=== PATIENT | female | born 1955 | race African-American/Black ===

== ENCOUNTER 2021-07-15 20:01 | Inpatient (IN) | payer MEDICARE, OTHER ==
[~2021-07-15] VITALS: Ht 170.2 cm; Wt 88.0 kg
[2021-07-15] MEDS ORDERED: IPRATROPIUM BROMIDE (0.02%) 0.5MG/2.5ML NEB HHN STA (23:02)
[2021-07-15] MEDS ORDERED: ALBUTEROL (0.083%) 2.5MG/3ML NEB HHN STA (23:02)
[2021-07-15] MEDS ORDERED: FUROSEMIDE 40MG/4ML VIAL IVP ONE (23:15)
[2021-07-15 23:39] LABS: BASOPHILS % 0.3 % (0.0-2.0); EOSINOPHILS % 1.7 % (0.0-5.0); HEMATOCRIT. 36.1 % (36.0-48.0); LYMPHOCYTES % 24.1 % (20.0-50.0); MEAN CORPUSCULAR HEMOGLOBIN 29.2 pg (28.0-32.0); MEAN CORPUSCULAR VOLUME 87.9 fL (81.0-99.0); MEAN PLATELET VOLUME 8.6 fl (7.4-10.4); MONOCYTES % 9.6 % (2.0-8.0); NEUTROPHILS % 64.3 % (40.0-76.0); PLATELET 185 x1000/uL (130-400); RED CELL DISTRIBUTION WIDTH 12.5 % (11.6-14.6)
[2021-07-15 23:45] LABS: CHLORIDE 111 mEq/L (98-107)
[2021-07-15] MEDS ORDERED: CEFTRIAXONE 1 G PREMIX 50 ML IV ONE (23:45)
[2021-07-15] MEDS ORDERED: AZITHROMYCIN 500 MG in DEXT 5% WATER 250 ML IV ONE (23:45)
[2021-07-16] MEDS ORDERED: KETOROLAC 30MG/ML VIAL IV ONE (01:45)
[2021-07-16 09:44] VITALS: BP 132/83
[2021-07-16] MEDS ORDERED: ACETAMINOPHEN 325MG TABLET PO PRN (10:15)
[2021-07-16] MEDS ORDERED: ONDANSETRON HCL 4MG/2ML INJ IV PRN (10:15)
[2021-07-16] MEDS ORDERED: FUROSEMIDE 40MG/4ML VIAL IVP SCH (10:28)
[2021-07-16] MEDS: AMLODIPINE 10MG TABLET PO SCH ×2 (11:15→11:26)
[2021-07-16 11:34] VITALS: BP 154/92
[2021-07-16] MEDS ORDERED: CARVEDILOL 6.25 MG TABLET PO SCH (21:00)
== END 2021-07-16 14:07 | disposition left against medical advice (07) | DRG 194 ==
LOC: ER 20:46 → MICUSO 07-16 02:47 → EDBEDREQDT 07-16 02:49 → EDBEDREQTM 07-16 02:49 → EDBEDREQ 07-16 02:49 → 6WST 07-16 07:16
PROVIDERS: ADMIT Internal Medicine; ATTEND Internal Medicine
DX: I11.0 Hypertensive heart disease with heart failure (principal); E44.0 Moderate protein-calorie malnutrition; E87.8 Other disorders of electrolyte and fluid balance, not elsewhere classified; I42.9 Cardiomyopathy, unspecified; I16.0 Hypertensive urgency; F15.10 Other stimulant abuse, uncomplicated; I50.23 Acute on chronic systolic (congestive) heart failure; F17.210 Nicotine dependence, cigarettes, uncomplicated; Z20.822 Contact with and (suspected) exposure to COVID-19; J44.9 Chronic obstructive pulmonary disease, unspecified; Z53.29 Procedure and treatment not carried out because of patient's decision for other reasons; Z82.49 Family history of ischemic heart disease and other diseases of the circulatory system; Z88.5 Allergy status to narcotic agent; Z71.6 Tobacco abuse counseling; Z68.30 Body mass index [BMI] 30.0-30.9, adult
CPT/HCPCS: 36415; 71045; 80053; 83605; 83880; 84484; 85025; 87426; 93005; 94640; 99291; J0456; J0696; J1885; J1940; J7060

== ENCOUNTER 2021-09-10 12:07 | Inpatient (IN) | payer MEDICARE, OTHER ==
[~2021-09-10] VITALS: Ht 170.2 cm; Wt 86.8 kg
[2021-09-10] MEDS ORDERED: CLONIDINE 0.2MG TABLET PO ONE (13:45)
[2021-09-10 14:41] LABS: BASOPHILS % 0.5 % (0.0-2.0); EOSINOPHILS % 1.5 % (0.0-5.0); HEMATOCRIT. 39.3 % (36.0-48.0); HEMOGLOBIN. 13.1 g/dL (12.0-16.0); LYMPHOCYTES % 19.3 % (20.0-50.0); MEAN CORPUSCULAR HEMOGLOBIN 29.1 pg (28.0-32.0); MEAN CORPUSCULAR VOLUME 87.4 fL (81.0-99.0); MEAN PLATELET VOLUME 8.7 fl (7.4-10.4); MONOCYTES % 8.9 % (2.0-8.0); NEUTROPHILS % 69.8 % (40.0-76.0); PLATELET 231 x1000/uL (130-400); RED CELL DISTRIBUTION WIDTH 12.9 % (11.6-14.6)
[2021-09-10 14:42] LABS: CLARITY URINE CLEAR (CLEAR); COLOR URINE YELLOW (YELLOW); KETONES URINE NEGATIVE (NEGATIVE); LEUKOCYTE ESTERASE URINE TRACE (NEGATIVE); NITRITE URINE NEGATIVE (NEGATIVE); OCCULT BLOOD URINE NEGATIVE (NEGATIVE); PROTEIN URINE 2+ (NEGATIVE); SPECIFIC GRAVITY URINE 1.008 (1.005-1.030); UROBILINOGEN URINE 0.2 E.U./dL (0.2-1.0)
[2021-09-10 14:47] LABS: CHLORIDE 105 mEq/L (98-107)
[2021-09-10 14:50] LABS: ETHANOL BLOOD < 10 mg/dL
[2021-09-10 15:04] LABS: *AMPHETAMINES SCREEN URINE PRESUMTIVE POSITIVE (NEGATIVE); *BARBITURATES SCREEN URINE NEGATIVE (NEGATIVE); *BENZODIAZEPINES SCREEN URINE NEGATIVE (NEGATIVE); *COCAINE SCREEN URINE NEGATIVE (NEGATIVE)
[2021-09-10 15:05] LABS: CANNABINOID URINE SCREEN NEGATIVE (NEGATIVE); METHADONE URINE SCREEN NEGATIVE (NEGATIVE); OPIATES URINE SCREEN NEGATIVE (NEGATIVE); PHENCYCLIDINE URINE SCREEN NEGATIVE (NEGATIVE)
[2021-09-10] MEDS ORDERED: NITROGLYCERIN OINT 1GM/INCH UDPKT TD ONE (15:15)
[2021-09-10] MEDS ORDERED: FUROSEMIDE 40MG/4ML VIAL IV ONE (15:15)
[2021-09-10] MEDS ORDERED: ASPIRIN 81MG TABLET PO ONE (15:15)
[2021-09-10] MEDS ORDERED: ACETAMINOPHEN 325MG TABLET PO ONE (16:15)
[2021-09-10] MEDS ORDERED: CLONIDINE 0.1MG TABLET PO PRN (21:30)
[2021-09-10 23:00] VITALS: BP 149/95
[2021-09-11] VITALS: BP 167/113
[2021-09-11] MEDS ORDERED: QUET300T2 PO (01:30)
[2021-09-11] MEDS ORDERED: ASPI-1079 PO (01:31)
[2021-09-11 04:00] VITALS: BP 134/104
[2021-09-11 06:17] LABS: BASOPHILS % 0.3 % (0.0-2.0); EOSINOPHILS % 2.3 % (0.0-5.0); HEMATOCRIT. 38.9 % (36.0-48.0); HEMOGLOBIN. 12.7 g/dL (12.0-16.0); LYMPHOCYTES % 34.2 % (20.0-50.0); MEAN CORPUSCULAR HEMOGLOBIN 28.9 pg (28.0-32.0); MEAN CORPUSCULAR VOLUME 88.2 fL (81.0-99.0); MEAN PLATELET VOLUME 9.3 fl (7.4-10.4); MONOCYTES % 11.6 % (2.0-8.0); NEUTROPHILS % 51.6 % (40.0-76.0); PLATELET 236 x1000/uL (130-400); RED BLOOD CELL COUNT 4.41 mill/uL (4.2-5.4); RED CELL DISTRIBUTION WIDTH 12.4 % (11.6-14.6)
[2021-09-11 08:00] VITALS: BP 111/84
[2021-09-11] MEDS ORDERED: FUROSEMIDE 20MG TABLET PO SCH (09:00)
[2021-09-11] MEDS ORDERED: ENOXAPARIN 40MG/0.4ML SYR SUBCUT SCH (09:00)
[2021-09-11 09:47] LABS: CHLORIDE 105 mEq/L (98-107)
[2021-09-11 12:00] VITALS: BP 114/64
[2021-09-11] MEDS ORDERED: FURO40TA5 MT (12:00)
[2021-09-11] MEDS ORDERED: SPIR25TA MT (12:00)
[2021-09-11] MEDS ORDERED: ATOR20TA65 MT (12:00)
[2021-09-11] MEDS ORDERED: CARV12.545 MT (12:00)
[2021-09-11] MEDS ORDERED: LOSA50TA41 MT (12:00)
[2021-09-11 13:35] VITALS: BP 116/59
== END 2021-09-11 15:45 | disposition home or self-care (01) | DRG 199 ==
LOC: ER 12:20 → 8WST 15:58 → ENRESERV 20:10
PROVIDERS: ADMIT Internal Medicine; ATTEND Internal Medicine
DX: I16.0 Hypertensive urgency (principal); E44.1 Mild protein-calorie malnutrition; C64.2 Malignant neoplasm of left kidney, except renal pelvis; R65.10 Systemic inflammatory response syndrome (SIRS) of non-infectious origin without acute organ dysfunction; I50.32 Chronic diastolic (congestive) heart failure; B18.2 Chronic viral hepatitis C; I11.0 Hypertensive heart disease with heart failure; G89.3 Neoplasm related pain (acute) (chronic); R47.1 Dysarthria and anarthria; Z20.822 Contact with and (suspected) exposure to COVID-19; R53.1 Weakness; R31.9 Hematuria, unspecified; F15.90 Other stimulant use, unspecified, uncomplicated; F20.9 Schizophrenia, unspecified; J44.9 Chronic obstructive pulmonary disease, unspecified; T43.95XA Adverse effect of unspecified psychotropic drug, initial encounter; Y92.89 Other specified places as the place of occurrence of the external cause; Z87.442 Personal history of urinary calculi; Z82.49 Family history of ischemic heart disease and other diseases of the circulatory system; Z88.0 Allergy status to penicillin; Z88.5 Allergy status to narcotic agent; Z71.51 Drug abuse counseling and surveillance of drug abuser
CPT/HCPCS: 36415; 71045; 80053; 80305; 80320; 81003; 83735; 83880; 84484; 85025; 87426; 93005; 93306; 97162; 99285; J1650; J1940; G0480

== ENCOUNTER 2021-12-08 11:53 | Inpatient (IN) | payer MEDICARE, OTHER ==
[~2021-12-08] VITALS: Ht 165.1 cm; Wt 89.0 kg
[~2021-12-08 11:53] MED LIST: ASPI-1079 PO; ATOR20TA65 MT; CARV12.545 MT; FURO40TA5 MT; LOSA50TA41 MT; QUET300T2 PO; SPIR25TA MT
[2021-12-08] MEDS ORDERED: DIPHENHYDRAMINE 50MG/ML VIAL IM STA (12:09)
[2021-12-08] MEDS ORDERED: LORAZEPAM 2MG/ML CPJ IM ONE (13:15)
[2021-12-08 14:57] LABS: CHLORIDE 111 mEq/L (98-107)
[2021-12-08 15:01] LABS: ETHANOL BLOOD < 10 mg/dL
[2021-12-08 15:17] LABS: BASOPHILS % 0.3 % (0.0-2.0); HEMOGLOBIN. 12.2 g/dL (12.0-16.0); LYMPHOCYTES % 16.6 % (20.0-50.0); MEAN CORPUSCULAR HEMOGLOBIN 28.3 pg (28.0-32.0); MEAN CORPUSCULAR VOLUME 90.2 fL (81.0-99.0); MEAN PLATELET VOLUME 8.6 fl (7.4-10.4); MONOCYTES % 10.1 % (2.0-8.0); PLATELET 196 x1000/uL (130-400); RED BLOOD CELL COUNT 4.32 mill/uL (4.2-5.4); RED CELL DISTRIBUTION WIDTH 13.2 % (11.6-14.6)
[2021-12-08 15:21] LABS: CLARITY URINE CLEAR (CLEAR); COLOR URINE DARK YELLOW (YELLOW); KETONES URINE TRACE (NEGATIVE); LEUKOCYTE ESTERASE URINE NEGATIVE (NEGATIVE); NITRITE URINE NEGATIVE (NEGATIVE); OCCULT BLOOD URINE TRACE (NEGATIVE); PROTEIN URINE 3+ (NEGATIVE); SPECIFIC GRAVITY URINE 1.022 (1.005-1.030)
[2021-12-08 15:31] LABS: *AMPHETAMINES SCREEN URINE PRESUMTIVE POSITIVE (NEGATIVE); *BARBITURATES SCREEN URINE NEGATIVE (NEGATIVE); *BENZODIAZEPINES SCREEN URINE NEGATIVE (NEGATIVE); *COCAINE SCREEN URINE NEGATIVE (NEGATIVE); CANNABINOID URINE SCREEN NEGATIVE (NEGATIVE); OPIATES URINE SCREEN NEGATIVE (NEGATIVE); PHENCYCLIDINE URINE SCREEN NEGATIVE (NEGATIVE)
[2021-12-08 15:33] LABS: METHADONE URINE SCREEN PRESUMTIVE POSITIVE (NEGATIVE)
[2021-12-08] MEDS ORDERED: SODIUM CHLORIDE 0.9% 1,000 ML IV ONE (17:15)
[2021-12-08] MEDS ORDERED: NALOXONE HCL 0.4 MG/ML 1ML VIAL IV ONE (18:00)
[2021-12-08] MEDS ORDERED: NALOXONE IV NR (19:00)
[2021-12-08] MEDS ORDERED: WATER IV NR (19:00)
[2021-12-08] MEDS ORDERED: DEXT 5% IV NR (19:00)
[2021-12-08] MEDS ORDERED: IPRATROPIUM/ALBUTEROL 0.5-3(2.5)MG/3ML NEB HHN PRN (23:45)
[2021-12-08] MEDS ORDERED: GUAIFENESIN 200MG/10ML SUGAR FREE UDC PO PRN (23:45)
[2021-12-08] MEDS ORDERED: CLONIDINE 0.1MG TABLET PO PRN (23:45)
[2021-12-08] MEDS ORDERED: DOCUSATE SODIUM 100MG CAPSULE PO PRN (23:45)
[2021-12-08] MEDS ORDERED: ACETAMINOPHEN 325MG TABLET PO PRN (23:45)
[2021-12-08] MEDS ORDERED: MAGNESIUM/ALUMINUM HYDROXIDE/SIMETHICONE 30ML UDC PO PRN (23:45)
[2021-12-09] VITALS (7 sets, daily range): BP systolic 156–197; BP diastolic 82–106
[2021-12-09] MEDS: DEXT 5%/0.45% NACL 1000ML 1,000 ML IV SCH ×2 (00:56→16:37)
[2021-12-09] MEDS: DIPHENHYDRAMINE 50MG/ML VIAL IV PRN ×2 (04:56→10:22)
[2021-12-09] MEDS: LORAZEPAM 2MG/ML CPJ IV PRN ×2 (06:08→10:22)
[2021-12-09] MEDS: SODIUM CHLORIDE 0.9% INJ 3ML FLUSH IVF SCH ×3 (06:09→21:06)
[2021-12-09] MEDS: ENOXAPARIN 30MG/0.3ML SYR SUBCUT SCH (10:21)
[2021-12-09 11:34] LABS: BASOPHILS % 0.4 % (0.0-2.0); EOSINOPHILS % 2.3 % (0.0-5.0); HEMATOCRIT. 35.7 % (36.0-48.0); HEMOGLOBIN. 11.5 g/dL (12.0-16.0); MEAN CORPUSCULAR HEMOGLOBIN 28.5 pg (28.0-32.0); MEAN CORPUSCULAR VOLUME 88.5 fL (81.0-99.0); MEAN PLATELET VOLUME 8.3 fl (7.4-10.4); MONOCYTES % 9.5 % (2.0-8.0); NEUTROPHILS % 68.8 % (40.0-76.0); PLATELET 162 x1000/uL (130-400); RED BLOOD CELL COUNT 4.03 mill/uL (4.2-5.4); RED CELL DISTRIBUTION WIDTH 12.6 % (11.6-14.6)
[2021-12-09 11:40] LABS: CHLORIDE 111 mEq/L (98-107)
[2021-12-09] MEDS: FUROSEMIDE 40MG TABLET PO SCH (13:06)
[2021-12-10] VITALS (11 sets, daily range): BP systolic 135–204; BP diastolic 46–135
[2021-12-10] MEDS: CLONIDINE HCL 0.1MG/24HR PATCH TD NR (03:04)
[2021-12-10] MEDS: SODIUM CHLORIDE 0.9% INJ 3ML FLUSH IVF SCH ×3 (05:39→21:57)
[2021-12-10 06:18] LABS: BASOPHILS % 0.3 % (0.0-2.0); EOSINOPHILS % 0.5 % (0.0-5.0); HEMATOCRIT. 38.3 % (36.0-48.0); HEMOGLOBIN. 12.5 g/dL (12.0-16.0); LYMPHOCYTES % 7.3 % (20.0-50.0); MEAN CORPUSCULAR HEMOGLOBIN 29.4 pg (28.0-32.0); MEAN CORPUSCULAR VOLUME 89.8 fL (81.0-99.0); MONOCYTES % 10.6 % (2.0-8.0); NEUTROPHILS % 81.3 % (40.0-76.0); PLATELET 151 x1000/uL (130-400); RED BLOOD CELL COUNT 4.26 mill/uL (4.2-5.4); RED CELL DISTRIBUTION WIDTH 12.4 % (11.6-14.6)
[2021-12-10] MEDS: DIPHENHYDRAMINE 50MG/ML VIAL IV PRN (06:33)
[2021-12-10] MEDS: FUROSEMIDE 40MG TABLET PO SCH (08:22)
[2021-12-10] MEDS: ENOXAPARIN 30MG/0.3ML SYR SUBCUT SCH (08:24)
[2021-12-10] MEDS: AMLODIPINE 5MG TABLET PO SCH ×2 (09:00→20:59)
[2021-12-10] MEDS ORDERED: LABETALOL 5MG/ML SYR 20 MG/4 ML SYRINGE IV PRN (12:15)
[2021-12-10] MEDS ORDERED: LABETALOL HCL VIAL 20 MG/4 ML VIAL IV PRN (12:45)
[2021-12-10] MEDS: LABETALOL 5MG/ML SYR 20 MG/4 ML SYRINGE IV PRN (13:43)
[2021-12-10] MEDS: DEXT 5%/0.45% NACL 1000ML 1,000 ML IV SCH (13:44)
[2021-12-10] MEDS ORDERED: FOLIC ACID 1 MG, THIAMINE HCL 100 MG, MVI, ADULT NO.1 10 ML in DEXTROSE 5% WATER 1,000 ML IV SCH (14:00)
[2021-12-11] VITALS (12 sets, daily range): BP systolic 127–187; BP diastolic 65–130
[2021-12-11] MEDS: LABETALOL 5MG/ML SYR 20 MG/4 ML SYRINGE IV PRN ×2 (01:03→12:13)
[2021-12-11] MEDS: CLONIDINE HCL 0.1MG/24HR PATCH TD NR (02:40)
[2021-12-11] MEDS: DIPHENHYDRAMINE 50MG/ML VIAL IV PRN ×2 (03:52→21:38)
[2021-12-11] MEDS: LORAZEPAM 2MG/ML CPJ IV PRN ×2 (04:29→12:12)
[2021-12-11] MEDS: SODIUM CHLORIDE 0.9% INJ 3ML FLUSH IVF SCH ×3 (05:37→21:09)
[2021-12-11 07:29] LABS: HEMOGLOBIN. 10.9 g/dL (12.0-16.0); MEAN CORPUSCULAR HEMOGLOBIN 29.3 pg (28.0-32.0); MEAN CORPUSCULAR VOLUME 88.7 fL (81.0-99.0); MEAN PLATELET VOLUME 9.7 fl (7.4-10.4); PLATELET 148 x1000/uL (130-400); RED BLOOD CELL COUNT 3.72 mill/uL (4.2-5.4); RED CELL DISTRIBUTION WIDTH 12.5 % (11.6-14.6)
[2021-12-11 08:31] LABS: CHLORIDE 110 mEq/L (98-107)
[2021-12-11] MEDS: AMLODIPINE 5MG TABLET PO SCH ×2 (09:00→21:09)
[2021-12-11] MEDS ORDERED: ENOXAPARIN 40MG/0.4ML SYR SUBCUT SCH (09:00)
[2021-12-11] MEDS: FUROSEMIDE 40MG/4ML VIAL IVP SCH (10:21)
[2021-12-11] MEDS: DEXT 5%/0.45% NACL 1000ML 1,000 ML IV SCH (12:13)
[2021-12-11] MEDS ORDERED: LOSARTAN POTASSIUM 50 MG TABLET PO NR (13:45)
[2021-12-11] MEDS: ATORVASTATIN CALCIUM 20MG TABLET PO SCH (21:09)
[2021-12-11] MEDS: LOSARTAN POTASSIUM 50 MG TABLET PO SCH (21:09)
[2021-12-12] VITALS (13 sets, daily range): BP systolic 125–185; BP diastolic 58–130
[2021-12-12] MEDS: DEXT 5%/0.45% NACL 1000ML 1,000 ML IV SCH (03:42)
[2021-12-12] MEDS: LORAZEPAM 2MG/ML CPJ IV PRN ×4 (03:45→23:19)
[2021-12-12] MEDS: LABETALOL 5MG/ML SYR 20 MG/4 ML SYRINGE IV PRN (03:46)
[2021-12-12] MEDS: SODIUM CHLORIDE 0.9% INJ 3ML FLUSH IVF SCH ×3 (05:00→22:00)
[2021-12-12 05:19] LABS: CHLORIDE 109 mEq/L (98-107)
[2021-12-12 07:14] LABS: BASOPHILS % 0.4 % (0.0-2.0); EOSINOPHILS % 2.4 % (0.0-5.0); HEMATOCRIT. 35.1 % (36.0-48.0); HEMOGLOBIN. 11.5 g/dL (12.0-16.0); LYMPHOCYTES % 19.5 % (20.0-50.0); MEAN CORPUSCULAR HEMOGLOBIN 29.2 pg (28.0-32.0); MEAN PLATELET VOLUME 9.4 fl (7.4-10.4); MONOCYTES % 10.3 % (2.0-8.0); NEUTROPHILS % 67.4 % (40.0-76.0); PLATELET 166 x1000/uL (130-400); RED BLOOD CELL COUNT 3.94 mill/uL (4.2-5.4); RED CELL DISTRIBUTION WIDTH 12.3 % (11.6-14.6)
[2021-12-12] MEDS: DIPHENHYDRAMINE 50MG/ML VIAL IV PRN ×3 (07:28→21:41)
[2021-12-12] MEDS: AMLODIPINE 5MG TABLET PO SCH ×2 (09:00→21:41)
[2021-12-12] MEDS: ENOXAPARIN 30MG/0.3ML SYR SUBCUT SCH ×2 (09:00→21:41)
[2021-12-12] MEDS: LOSARTAN POTASSIUM 50 MG TABLET PO SCH ×2 (09:00→21:40)
[2021-12-12] MEDS: FUROSEMIDE 40MG/4ML VIAL IVP SCH (10:28)
[2021-12-12] MEDS ORDERED: MAGNESIUM 2 G PREMIX 50 ML IV NR (11:00)
[2021-12-12 12:03] LABS: PLATELET ESTIMATE NORMAL
[2021-12-12 13:07] LABS: ANTI-NUCLEAR ANTIBODIES DIRECT Negative (Negative)
[2021-12-12] MEDS: ENALAPRIL 1.25MG/ML VIAL 1ML IV SCH ×3 (15:41→23:12)
[2021-12-12] MEDS: RISPERIDONE 0.25MG TABLET PO SCH (17:40)
[2021-12-12] MEDS: ATORVASTATIN CALCIUM 20MG TABLET PO SCH (21:40)
[2021-12-13] VITALS (10 sets, daily range): BP systolic 138–173; BP diastolic 65–117
[2021-12-13] MEDS: DEXT 5%/0.45% NACL 1000ML 1,000 ML IV SCH ×2 (03:58→23:18)
[2021-12-13] MEDS: ENALAPRIL 1.25MG/ML VIAL 1ML IV SCH ×3 (05:03→18:34)
[2021-12-13] MEDS: DIPHENHYDRAMINE 50MG/ML VIAL IV PRN (05:03)
[2021-12-13] MEDS: SODIUM CHLORIDE 0.9% INJ 3ML FLUSH IVF SCH ×3 (05:05→20:56)
[2021-12-13 05:25] LABS: CHLORIDE 109 mEq/L (98-107)
[2021-12-13 05:42] LABS: PHOSPHORUS 3.2 mg/dL (2.5-4.9)
[2021-12-13 06:09] LABS: BASOPHILS % 0.5 % (0.0-2.0); EOSINOPHILS % 3.4 % (0.0-5.0); HEMATOCRIT. 37.1 % (36.0-48.0); HEMOGLOBIN. 12.3 g/dL (12.0-16.0); LYMPHOCYTES % 27.2 % (20.0-50.0); MEAN CORPUSCULAR HEMOGLOBIN 29.2 pg (28.0-32.0); MEAN PLATELET VOLUME 9.3 fl (7.4-10.4); MONOCYTES % 10.7 % (2.0-8.0); NEUTROPHILS % 58.2 % (40.0-76.0); PLATELET 177 x1000/uL (130-400); RED BLOOD CELL COUNT 4.22 mill/uL (4.2-5.4); RED CELL DISTRIBUTION WIDTH 12.2 % (11.6-14.6)
[2021-12-13] MEDS: LORAZEPAM 2MG/ML CPJ IV PRN ×3 (06:41→20:57)
[2021-12-13] MEDS: FUROSEMIDE 40MG/4ML VIAL IVP SCH (08:57)
[2021-12-13] MEDS: ENOXAPARIN 30MG/0.3ML SYR SUBCUT SCH ×2 (08:57→20:37)
[2021-12-13] MEDS: AMLODIPINE 5MG TABLET PO SCH ×2 (10:32→20:55)
[2021-12-13] MEDS: RISPERIDONE 0.25MG TABLET PO SCH ×2 (10:32→17:00)
[2021-12-13] MEDS: LOSARTAN POTASSIUM 50 MG TABLET PO SCH ×2 (10:32→20:55)
[2021-12-13] MEDS: ATORVASTATIN CALCIUM 20MG TABLET PO SCH (20:55)
[2021-12-13] MEDS: ONDANSETRON HCL 4MG/2ML INJ IV PRN (20:57)
[2021-12-14] VITALS: BP 135/71
[2021-12-14] MEDS: ENALAPRIL 1.25MG/ML VIAL 1ML IV SCH ×2 (00:05→06:15)
[2021-12-14 04:00] VITALS: BP 129/90
[2021-12-14] MEDS: SODIUM CHLORIDE 0.9% INJ 3ML FLUSH IVF SCH ×3 (04:22→20:32)
[2021-12-14 07:18] LABS: BASOPHILS % 0.7 % (0.0-2.0); EOSINOPHILS % 3.8 % (0.0-5.0); HEMATOCRIT. 36.7 % (36.0-48.0); HEMOGLOBIN. 12.2 g/dL (12.0-16.0); LYMPHOCYTES % 30.8 % (20.0-50.0); MEAN CORPUSCULAR HEMOGLOBIN 29.4 pg (28.0-32.0); MEAN CORPUSCULAR VOLUME 88.6 fL (81.0-99.0); MEAN PLATELET VOLUME 11.2 fl (7.4-10.4); MONOCYTES % 13.3 % (2.0-8.0); NEUTROPHILS % 51.4 % (40.0-76.0); PLATELET 147 x1000/uL (130-400); RED BLOOD CELL COUNT 4.15 mill/uL (4.2-5.4); RED CELL DISTRIBUTION WIDTH 12.5 % (11.6-14.6)
[2021-12-14 08:00] VITALS: BP 118/76
[2021-12-14] MEDS: AMLODIPINE 5MG TABLET PO SCH ×2 (08:40→20:29)
[2021-12-14] MEDS: ENOXAPARIN 30MG/0.3ML SYR SUBCUT SCH ×2 (08:40→20:30)
[2021-12-14] MEDS: FUROSEMIDE 40MG/4ML VIAL IVP SCH (08:40)
[2021-12-14] MEDS: RISPERIDONE 0.25MG TABLET PO SCH ×2 (08:41→17:31)
[2021-12-14] MEDS: LOSARTAN POTASSIUM 50 MG TABLET PO SCH ×2 (08:46→20:29)
[2021-12-14 11:37] VITALS: BP 131/69
[2021-12-14 16:00] VITALS: BP 109/62
[2021-12-14 20:00] VITALS: BP 110/63
[2021-12-14] MEDS: ATORVASTATIN CALCIUM 20MG TABLET PO SCH (20:30)
[2021-12-15] VITALS (9 sets, daily range): BP systolic 108–140; BP diastolic 58–91
[2021-12-15] MEDS: SODIUM CHLORIDE 0.9% INJ 3ML FLUSH IVF SCH ×3 (05:17→21:01)
[2021-12-15] MEDS: DIPHENHYDRAMINE 50MG/ML VIAL IV PRN (05:17)
[2021-12-15] MEDS: ONDANSETRON HCL 4MG/2ML INJ IV PRN (05:17)
[2021-12-15] MEDS: RISPERIDONE 0.25MG TABLET PO SCH (08:26)
[2021-12-15] MEDS: ENOXAPARIN 30MG/0.3ML SYR SUBCUT SCH ×2 (08:26→21:01)
[2021-12-15] MEDS: FUROSEMIDE 40MG TABLET PO SCH (08:27)
[2021-12-15] MEDS: LOSARTAN POTASSIUM 50 MG TABLET PO SCH ×2 (08:27→21:01)
[2021-12-15 08:42] LABS: BASOPHILS % 0.6 % (0.0-2.0); EOSINOPHILS % 3.6 % (0.0-5.0); HEMATOCRIT. 34.9 % (36.0-48.0); HEMOGLOBIN. 11.6 g/dL (12.0-16.0); LYMPHOCYTES % 27.1 % (20.0-50.0); MEAN CORPUSCULAR HEMOGLOBIN 29.5 pg (28.0-32.0); MEAN CORPUSCULAR VOLUME 88.5 fL (81.0-99.0); MONOCYTES % 10.9 % (2.0-8.0); NEUTROPHILS % 57.8 % (40.0-76.0); PLATELET 160 x1000/uL (130-400); RED BLOOD CELL COUNT 3.94 mill/uL (4.2-5.4); RED CELL DISTRIBUTION WIDTH 12.2 % (11.6-14.6)
[2021-12-15] MEDS ORDERED: POTASSIUM CHLORIDE 20MEQ/PACKET PO NR (09:15)
[2021-12-15] MEDS: AMLODIPINE 5MG TABLET PO SCH ×2 (10:19→21:01)
[2021-12-15] MEDS: ATORVASTATIN CALCIUM 20MG TABLET PO SCH (21:01)
[2021-12-16] VITALS (11 sets, daily range): BP systolic 108–160; BP diastolic 65–109
[2021-12-16] MEDS: SODIUM CHLORIDE 0.9% INJ 3ML FLUSH IVF SCH ×3 (05:42→21:01)
[2021-12-16] MEDS: DIPHENHYDRAMINE 50MG/ML VIAL IV PRN (07:52)
[2021-12-16] MEDS: FUROSEMIDE 40MG TABLET PO SCH (08:28)
[2021-12-16] MEDS: AMLODIPINE 2.5MG TABLET PO SCH ×2 (08:28→21:01)
[2021-12-16] MEDS: LOSARTAN POTASSIUM 25 MG TABLET PO SCH ×2 (08:28→21:01)
[2021-12-16] MEDS: ENOXAPARIN 30MG/0.3ML SYR SUBCUT SCH (08:29)
[2021-12-16] MEDS ORDERED: RISPERIDONE 0.5MG TABLET PO SCH (09:00)
[2021-12-16] MEDS ORDERED: POTASSIUM CHLORIDE 20MEQ TABLET SR PO NR (10:00)
[2021-12-16] MEDS: RISPERIDONE 0.5MG TABLET PO SCH (16:45)
[2021-12-16] MEDS: LORAZEPAM 2MG/ML CPJ IV PRN ×2 (17:41→21:52)
[2021-12-16] MEDS: ATORVASTATIN CALCIUM 20MG TABLET PO SCH (21:01)
[2021-12-17] VITALS (12 sets, daily range): BP systolic 88–149; BP diastolic 62–97
[2021-12-17] MEDS: SODIUM CHLORIDE 0.9% INJ 3ML FLUSH IVF SCH ×3 (06:23→21:07)
[2021-12-17] MEDS: LORAZEPAM 2MG/ML CPJ IV PRN ×2 (08:13→21:08)
[2021-12-17] MEDS: LOSARTAN POTASSIUM 25 MG TABLET PO SCH ×2 (09:00→21:07)
[2021-12-17] MEDS: AMLODIPINE 2.5MG TABLET PO SCH ×2 (09:00→21:07)
[2021-12-17] MEDS: RISPERIDONE 0.5MG TABLET PO SCH ×2 (13:23→17:50)
[2021-12-17] MEDS: ENOXAPARIN 40MG/0.4ML SYR SUBCUT SCH (15:01)
[2021-12-17 15:48] LABS: BASOPHILS % 0.7 % (0.0-2.0); EOSINOPHILS % 3.3 % (0.0-5.0); HEMATOCRIT. 36.6 % (36.0-48.0); HEMOGLOBIN. 12.2 g/dL (12.0-16.0); LYMPHOCYTES % 27.7 % (20.0-50.0); MEAN CORPUSCULAR HEMOGLOBIN 28.8 pg (28.0-32.0); MEAN CORPUSCULAR VOLUME 86.5 fL (81.0-99.0); MEAN PLATELET VOLUME 9.7 fl (7.4-10.4); MONOCYTES % 9.9 % (2.0-8.0); NEUTROPHILS % 58.4 % (40.0-76.0); PLATELET 172 x1000/uL (130-400); RED BLOOD CELL COUNT 4.23 mill/uL (4.2-5.4); RED CELL DISTRIBUTION WIDTH 12.3 % (11.6-14.6)
[2021-12-17 16:07] LABS: CHLORIDE 107 mEq/L (98-107)
[2021-12-17] MEDS: ATORVASTATIN CALCIUM 20MG TABLET PO SCH (21:07)
[2021-12-18] VITALS (8 sets, daily range): BP systolic 105–164; BP diastolic 44–94
[2021-12-18] MEDS: LORAZEPAM 2MG/ML CPJ IV PRN ×2 (03:29→21:40)
[2021-12-18] MEDS: SODIUM CHLORIDE 0.9% INJ 3ML FLUSH IVF SCH ×3 (06:11→21:43)
[2021-12-18 06:34] LABS: BASOPHILS % 0.5 % (0.0-2.0); EOSINOPHILS % 2.4 % (0.0-5.0); HEMATOCRIT. 35.1 % (36.0-48.0); HEMOGLOBIN. 11.9 g/dL (12.0-16.0); LYMPHOCYTES % 26.8 % (20.0-50.0); MEAN CORPUSCULAR HEMOGLOBIN 29.4 pg (28.0-32.0); MEAN CORPUSCULAR VOLUME 86.6 fL (81.0-99.0); MEAN PLATELET VOLUME 8.9 fl (7.4-10.4); MONOCYTES % 10.5 % (2.0-8.0); NEUTROPHILS % 59.8 % (40.0-76.0); PLATELET 225 x1000/uL (130-400); RED BLOOD CELL COUNT 4.05 mill/uL (4.2-5.4)
[2021-12-18 07:31] LABS: CHLORIDE 105 mEq/L (98-107)
[2021-12-18] MEDS: AMLODIPINE 2.5MG TABLET PO SCH ×2 (08:42→21:43)
[2021-12-18] MEDS: LOSARTAN POTASSIUM 25 MG TABLET PO SCH ×2 (08:42→21:40)
[2021-12-18] MEDS: RISPERIDONE 0.5MG TABLET PO SCH ×2 (08:42→17:49)
[2021-12-18] MEDS: ENOXAPARIN 40MG/0.4ML SYR SUBCUT SCH (08:43)
[2021-12-18] MEDS: ONDANSETRON HCL 4MG/2ML INJ IV PRN (21:40)
[2021-12-18] MEDS: ATORVASTATIN CALCIUM 20MG TABLET PO SCH (21:40)
[2021-12-18] MEDS: DIPHENHYDRAMINE 50MG/ML VIAL IV PRN (22:34)
[2021-12-19] VITALS: BP 104/67
[2021-12-19] MEDS: LORAZEPAM 2MG/ML CPJ IV PRN ×2 (03:16→09:51)
[2021-12-19] MEDS: DIPHENHYDRAMINE 50MG/ML VIAL IV PRN (03:16)
[2021-12-19 04:00] VITALS: BP 125/76
[2021-12-19] MEDS: SODIUM CHLORIDE 0.9% INJ 3ML FLUSH IVF SCH ×3 (05:28→21:22)
[2021-12-19 08:00] VITALS: BP 146/72
[2021-12-19] MEDS: ENOXAPARIN 40MG/0.4ML SYR SUBCUT SCH (09:19)
[2021-12-19] MEDS: AMLODIPINE 2.5MG TABLET PO SCH ×2 (09:19→21:22)
[2021-12-19] MEDS: LOSARTAN POTASSIUM 25 MG TABLET PO SCH ×2 (09:19→21:22)
[2021-12-19] MEDS: RISPERIDONE 0.5MG TABLET PO SCH ×2 (09:19→18:35)
[2021-12-19 12:00] VITALS: BP 108/65
[2021-12-19 12:51] LABS: BASOPHILS % 0.4 % (0.0-2.0); EOSINOPHILS % 3.7 % (0.0-5.0); HEMATOCRIT. 35.3 % (36.0-48.0); HEMOGLOBIN. 11.4 g/dL (12.0-16.0); LYMPHOCYTES % 26.2 % (20.0-50.0); MEAN CORPUSCULAR HEMOGLOBIN 28.4 pg (28.0-32.0); MEAN CORPUSCULAR VOLUME 88.1 fL (81.0-99.0); MEAN PLATELET VOLUME 8.7 fl (7.4-10.4); NEUTROPHILS % 56.7 % (40.0-76.0); PLATELET 219 x1000/uL (130-400); RED CELL DISTRIBUTION WIDTH 12.2 % (11.6-14.6)
[2021-12-19 16:00] VITALS: BP 96/49
[2021-12-19 20:00] VITALS: BP 122/69
[2021-12-19] MEDS: QUETIAPINE FUMARATE 50MG TABLET PO SCH (21:20)
[2021-12-19] MEDS: ATORVASTATIN CALCIUM 20MG TABLET PO SCH (21:21)
[2021-12-20] VITALS: BP 128/92
[2021-12-20 04:00] VITALS: BP 115/71
[2021-12-20] MEDS: SODIUM CHLORIDE 0.9% INJ 3ML FLUSH IVF SCH ×3 (05:03→21:18)
[2021-12-20 08:00] VITALS: BP 157/90
[2021-12-20] MEDS: AMLODIPINE 2.5MG TABLET PO SCH ×2 (09:29→20:33)
[2021-12-20] MEDS: ENOXAPARIN 40MG/0.4ML SYR SUBCUT SCH (09:29)
[2021-12-20] MEDS: RISPERIDONE 0.5MG TABLET PO SCH ×2 (09:29→16:55)
[2021-12-20] MEDS: LOSARTAN POTASSIUM 25 MG TABLET PO SCH ×2 (09:29→20:33)
[2021-12-20 12:00] VITALS: BP 116/79
[2021-12-20 15:32] VITALS: BP 136/73
[2021-12-20] MEDS: LORAZEPAM 2MG/ML CPJ IV PRN (17:50)
[2021-12-20 20:00] VITALS: BP 154/81
[2021-12-20] MEDS: ATORVASTATIN CALCIUM 20MG TABLET PO SCH (20:32)
[2021-12-20] MEDS: QUETIAPINE FUMARATE 50MG TABLET PO SCH (20:32)
[2021-12-20] MEDS: DIPHENHYDRAMINE 50MG/ML VIAL IV PRN (20:33)
[2021-12-21] VITALS (7 sets, daily range): BP systolic 108–151; BP diastolic 67–88
[2021-12-21] MEDS: SODIUM CHLORIDE 0.9% INJ 3ML FLUSH IVF SCH ×3 (05:15→22:14)
[2021-12-21] MEDS: RISPERIDONE 1MG TABLET PO SCH ×2 (09:20→18:32)
[2021-12-21] MEDS: LOSARTAN POTASSIUM 25 MG TABLET PO SCH ×2 (09:21→20:45)
[2021-12-21] MEDS: ENOXAPARIN 40MG/0.4ML SYR SUBCUT SCH (09:21)
[2021-12-21] MEDS: AMLODIPINE 2.5MG TABLET PO SCH ×2 (09:21→20:45)
[2021-12-21] MEDS: LORAZEPAM 2MG/ML CPJ IV PRN (11:17)
[2021-12-21 13:17] LABS: BASOPHILS % 0.7 % (0.0-2.0); EOSINOPHILS % 2.2 % (0.0-5.0); HEMOGLOBIN. 12.3 g/dL (12.0-16.0); LYMPHOCYTES % 25.2 % (20.0-50.0); MEAN CORPUSCULAR HEMOGLOBIN 28.3 pg (28.0-32.0); MEAN CORPUSCULAR VOLUME 87.8 fL (81.0-99.0); MEAN PLATELET VOLUME 9.2 fl (7.4-10.4); MONOCYTES % 12.9 % (2.0-8.0); PLATELET 206 x1000/uL (130-400); RED BLOOD CELL COUNT 4.33 mill/uL (4.2-5.4); RED CELL DISTRIBUTION WIDTH 12.5 % (11.6-14.6)
[2021-12-21 13:35] LABS: CHLORIDE 109 mEq/L (98-107)
[2021-12-21] MEDS ORDERED: LORAZEPAM 2MG/ML CPJ IV PRN (18:30)
[2021-12-21] MEDS: QUETIAPINE FUMARATE 50MG TABLET PO SCH (20:45)
[2021-12-21] MEDS: ATORVASTATIN CALCIUM 20MG TABLET PO SCH (20:45)
[2021-12-22] MEDS: ONDANSETRON HCL 4MG/2ML INJ IV PRN (00:13)
[2021-12-22 03:53] VITALS: BP 153/72
[2021-12-22] MEDS: SODIUM CHLORIDE 0.9% INJ 3ML FLUSH IVF SCH ×2 (05:13→14:11)
[2021-12-22 06:24] LABS: BASOPHILS % 0.8 % (0.0-2.0); EOSINOPHILS % 2.8 % (0.0-5.0); HEMOGLOBIN. 12.9 g/dL (12.0-16.0); LYMPHOCYTES % 32.8 % (20.0-50.0); MEAN CORPUSCULAR HEMOGLOBIN 29.1 pg (28.0-32.0); MEAN CORPUSCULAR VOLUME 85.7 fL (81.0-99.0); MEAN PLATELET VOLUME 9.6 fl (7.4-10.4); MONOCYTES % 12.4 % (2.0-8.0); NEUTROPHILS % 51.2 % (40.0-76.0); PLATELET 219 x1000/uL (130-400); RED BLOOD CELL COUNT 4.44 mill/uL (4.2-5.4); RED CELL DISTRIBUTION WIDTH 12.2 % (11.6-14.6)
[2021-12-22 08:00] VITALS: BP 116/75
[2021-12-22] MEDS: LOSARTAN POTASSIUM 25 MG TABLET PO SCH (08:31)
[2021-12-22] MEDS: AMLODIPINE 2.5MG TABLET PO SCH (08:32)
[2021-12-22] MEDS: RISPERIDONE 1MG TABLET PO SCH (08:32)
[2021-12-22] MEDS: ENOXAPARIN 40MG/0.4ML SYR SUBCUT SCH (08:32)
[2021-12-22 12:00] VITALS: BP 110/49
[2021-12-22 15:08] VITALS: BP 123/62
== END 2021-12-22 20:35 | disposition home health service (06) | DRG 817 ==
LOC: ER 11:53 → CANRESERV 12-09 07:22 → ENRESERV 12-09 07:22 → EDBEDREQSVC 12-09 10:16 → ENRESERV 12-09 12:00 → 5EST 12-09 13:37
PROVIDERS: ADMIT Internal Medicine; ATTEND Internal Medicine
PROC: 4A10X4Z Monitoring of Central Nervous Electrical Activity, External Approach (ICD-10-PCS; principal; 2021-12-11)
DX: T43.622A Poisoning by amphetamines, intentional self-harm, initial encounter (principal); N17.0 Acute kidney failure with tubular necrosis; G92.8 Other toxic encephalopathy; I42.9 Cardiomyopathy, unspecified; R65.10 Systemic inflammatory response syndrome (SIRS) of non-infectious origin without acute organ dysfunction; I50.30 Unspecified diastolic (congestive) heart failure; I11.0 Hypertensive heart disease with heart failure; F31.30 Bipolar disorder, current episode depressed, mild or moderate severity, unspecified; E86.9 Volume depletion, unspecified; J44.9 Chronic obstructive pulmonary disease, unspecified; E78.5 Hyperlipidemia, unspecified; I44.7 Left bundle-branch block, unspecified; E87.6 Hypokalemia; F17.200 Nicotine dependence, unspecified, uncomplicated; F20.9 Schizophrenia, unspecified; F11.10 Opioid abuse, uncomplicated; Z20.822 Contact with and (suspected) exposure to COVID-19; Z78.1 Physical restraint status; Z79.899 Other long term (current) drug therapy; Z82.49 Family history of ischemic heart disease and other diseases of the circulatory system; Z88.6 Allergy status to analgesic agent; Z88.0 Allergy status to penicillin; Z79.82 Long term (current) use of aspirin; Y92.89 Other specified places as the place of occurrence of the external cause; T40.3X2A Poisoning by methadone, intentional self-harm, initial encounter; F16.10 Hallucinogen abuse, uncomplicated
CPT/HCPCS: 36415; 71045; 76770; 80048; 80053; 80305; 80320; 81003; 82570; 83735; 84100; 84156; 84443; 84484; 85025; 86038; 86160; 87426; 92610; 93005; 95816; 97162; 97166; 99291; A6261; C1725; C1893; J1200; J1650; J1940; J2060; J2310; J2405; J3411; J3475; J3490; J7030; J7060; J7070; G0480

== ENCOUNTER 2022-12-06 03:37 | Emergency (ER) | payer MEDICARE, OTHER ==
[~2022-12-06] VITALS: Ht 170.2 cm; Wt 82.0 kg
[2022-12-06 03:57] VITALS: BP 109/81
== END 2022-12-06 06:37 | disposition left against medical advice (07) ==
LOC: ER 03:45
DX: Z53.21 Procedure and treatment not carried out due to patient leaving prior to being seen by health care provider (principal); I11.0 Hypertensive heart disease with heart failure; I50.9 Heart failure, unspecified; F20.9 Schizophrenia, unspecified

== ENCOUNTER 2023-02-10 01:07 | Inpatient (IN) | payer MEDICARE, OTHER ==
[~2023-02-10] VITALS: Ht 162.6 cm; Wt 85.6 kg
[2023-02-10 04:05] LABS: BASOPHILS % 0.4 % (0.0-2.0); EOSINOPHILS % 2.5 % (0.0-5.0); HEMOGLOBIN. 11.9 g/dL (12.0-16.0); LYMPHOCYTES % 30.1 % (20.0-50.0); MEAN PLATELET VOLUME 8.6 fl (7.4-10.4); MONOCYTES % 9.7 % (2.0-8.0); NEUTROPHILS % 57.3 % (40.0-76.0); PLATELET 163 x1000/uL (130-400); RED BLOOD CELL COUNT 4.11 mill/uL (4.2-5.4); RED CELL DISTRIBUTION WIDTH 14.2 % (11.6-14.6)
[2023-02-10 04:13] LABS: CHLORIDE 118 mEq/L (98-107)
[2023-02-10] MEDS ORDERED: SODIUM CHLORIDE 0.9% 1,000 ML IV ONE (08:00)
[2023-02-10] MEDS ORDERED: DOCUSATE SODIUM 100MG CAPSULE PO PRN (11:15)
[2023-02-10] MEDS ORDERED: HYDROCODONE/ACETAMINOPHEN 5/325MG TABLET PO PRN (11:15)
[2023-02-10] MEDS ORDERED: LOPERAMIDE 2MG/15ML UDC PO ONE (11:15)
[2023-02-10] MEDS ORDERED: IPRATROPIUM/ALBUTEROL 0.5-3(2.5)MG/3ML NEB HHN PRN (11:15)
[2023-02-10] MEDS ORDERED: ACETAMINOPHEN 325MG TABLET PO PRN ×2 (11:15)
[2023-02-10] MEDS ORDERED: ONDANSETRON HCL 4MG/2ML INJ IV PRN (11:15)
[2023-02-10] MEDS ORDERED: GUAIFENESIN 200MG/10ML SUGAR FREE UDC PO PRN (11:15)
[2023-02-10] MEDS ORDERED: LOPERAMIDE 2MG/15ML UDC PO PRN (11:15)
[2023-02-10] MEDS ORDERED: FUROSEMIDE 40MG TABLET PO SCH (11:30)
[2023-02-10] MEDS ORDERED: AMLODIPINE 2.5MG TABLET PO SCH (11:30)
[2023-02-10] MEDS ORDERED: LOSARTAN POTASSIUM 25 MG TABLET PO SCH (11:30)
[2023-02-10] MEDS ORDERED: LOPERAMIDE HCL 2MG CAPSULE PO NR (11:45)
[2023-02-10] MEDS ORDERED: NALOXONE HCL 0.4MG/ML VIAL IV PRN (11:45)
[2023-02-10] MEDS ORDERED: LOPERAMIDE HCL 2MG CAPSULE PO PRN (16:00)
[2023-02-10] MEDS ORDERED: METOPROLOL TARTRATE 5MG/5ML VIAL IV NR (18:41)
[2023-02-10 18:43] LABS: BG BASE EXCESS -6.8 mmol/L (-2.0-2.0); BG CARBOXYHEMOGLOBIN 0.4 % (0.5-1.5); BG DEOXYHEMOGLOBIN 4.5 % (0.0-5.0); BG FRACTION INSPIRED OXYGEN 32; BG HCO3 ACT 18.8 mmol/L (22.0-26.0); BG OXYGEN SATURATION 95.5 % (92.0-98.5); BG OXYHEMOGLOBIN 95.1 % (94.0-97.0); BG PCO2 38.2 mmHg (35.0-45.0); BG PO2 84.9 mmHg (75.0-100.0); BG SAMPLE SITE RIGHT RADIAL; BG TOTAL HEMOGLOBIN 13.1 g/dL (12.0-18.0); BG VENT MODE NASAL CANNULA
[2023-02-10] MEDS ORDERED: ASPIRIN 325MG TABLET PO NR (18:45)
[2023-02-10] MEDS ORDERED: IOHEXOL-350 100 ML BOTTLE ONE (19:26)
[2023-02-10] MEDS: CLONIDINE 0.1MG TABLET PO PRN (22:23)
[2023-02-10 23:15] VITALS: BP 139/104
[2023-02-10 23:30] VITALS: BP 139/104
[2023-02-11] MEDS: DEXT 5%/0.9% NACL 1,000 ML IV SCH ×2 (00:50→01:17)
[2023-02-11 01:12] LABS: CLARITY URINE CLEAR (CLEAR); COLOR URINE YELLOW (YELLOW); KETONES URINE NEGATIVE (NEGATIVE); LEUKOCYTE ESTERASE URINE NEGATIVE (NEGATIVE); NITRITE URINE NEGATIVE (NEGATIVE); OCCULT BLOOD URINE TRACE (NEGATIVE); PROTEIN URINE 1+ (NEGATIVE); SPECIFIC GRAVITY URINE 1.034 (1.005-1.030); UROBILINOGEN URINE 0.2 E.U./dL (0.2-1.0)
[2023-02-11] MEDS ORDERED: ASPIRIN 325MG TABLET PO NR (01:15)
[2023-02-11] MEDS: QUETIAPINE FUMARATE 50MG TABLET PO SCH ×2 (01:15→20:54)
[2023-02-11] MEDS: PANTOPRAZOLE SODIUM 40 MG/VIAL IV SCH ×2 (01:15→09:25)
[2023-02-11] MEDS: ENOXAPARIN 40MG/0.4ML SYR SUBCUT SCH ×2 (01:17→12:17)
[2023-02-11 01:46] LABS: SODIUM URINE RANDOM 116 mEq/L
[2023-02-11 01:52] LABS: *AMPHETAMINES SCREEN URINE PRESUMTIVE POSITIVE (NEGATIVE); *BARBITURATES SCREEN URINE NEGATIVE (NEGATIVE); *BENZODIAZEPINES SCREEN URINE NEGATIVE (NEGATIVE); *COCAINE SCREEN URINE NEGATIVE (NEGATIVE); CANNABINOID URINE SCREEN NEGATIVE (NEGATIVE); METHADONE URINE SCREEN NEGATIVE (NEGATIVE); OPIATES URINE SCREEN NEGATIVE (NEGATIVE); PHENCYCLIDINE URINE SCREEN NEGATIVE (NEGATIVE)
[2023-02-11] MEDS ORDERED: SPIR25TA6 MT (03:49)
[2023-02-11] MEDS ORDERED: METO-385 PO (03:49)
[2023-02-11] MEDS ORDERED: APIX5TAB PO (03:49)
[2023-02-11] MEDS ORDERED: SIMV10TA97 MT (03:49)
[2023-02-11] MEDS ORDERED: CARV25TA47 MT (03:49)
[2023-02-11] MEDS ORDERED: LOSA25TA26 MT (03:49)
[2023-02-11] MEDS ORDERED: ATOR20TA65 MT (03:49)
[2023-02-11] MEDS ORDERED: ESCI-7 MT (03:49)
[2023-02-11] MEDS ORDERED: ASPI-1497 MT (03:49)
[2023-02-11 04:00] VITALS: BP 105/68
[2023-02-11 08:00] VITALS: BP 135/93
[2023-02-11] MEDS ORDERED: IPRATROPIUM BROMIDE (0.02%) 0.5MG/2.5ML NEB HHN PRN (08:15)
[2023-02-11] MEDS ORDERED: ALBUTEROL (0.083%) 2.5MG/3ML NEB HHN PRN (08:15)
[2023-02-11] MEDS ORDERED: ASPIRIN 81MG TABLET PO SCH (09:00)
[2023-02-11] MEDS: CLOPIDOGREL 75MG TABLET PO SCH (09:24)
[2023-02-11 12:00] VITALS: BP 156/91
[2023-02-11 16:00] VITALS: BP 152/100
[2023-02-11 17:00] VITALS: BP 140/90
[2023-02-11 20:00] VITALS: BP 150/89
[2023-02-12] VITALS: BP 132/80
[2023-02-12 04:00] VITALS: BP 137/89
[2023-02-12 06:56] LABS: BASOPHILS % 0.5 % (0.0-2.0); EOSINOPHILS % 2.7 % (0.0-5.0); HEMATOCRIT. 36.4 % (36.0-48.0); HEMOGLOBIN. 11.9 g/dL (12.0-16.0); MEAN CORPUSCULAR HEMOGLOBIN 29.5 pg (28.0-32.0); MEAN CORPUSCULAR VOLUME 89.7 fL (81.0-99.0); MEAN PLATELET VOLUME 9.2 fl (7.4-10.4); MONOCYTES % 11.9 % (2.0-8.0); NEUTROPHILS % 52.9 % (40.0-76.0); PLATELET 152 x1000/uL (130-400); RED BLOOD CELL COUNT 4.05 mill/uL (4.2-5.4); RED CELL DISTRIBUTION WIDTH 13.9 % (11.6-14.6)
[2023-02-12 08:00] VITALS: BP 149/104
[2023-02-12] MEDS: ENOXAPARIN 100MG/ML SYR SUBCUT SCH ×2 (08:37→21:03)
[2023-02-12] MEDS: CARVEDILOL 3.125 MG TABLET PO SCH ×2 (08:37→21:03)
[2023-02-12] MEDS: FAMOTIDINE 20MG/2ML VIAL IV SCH (08:37)
[2023-02-12] MEDS: CLOPIDOGREL 75MG TABLET PO SCH (08:38)
[2023-02-12 08:45] LABS: VITAMIN B12 SERUM 421 pg/mL (211-911)
[2023-02-12 11:59] VITALS: BP 139/106
[2023-02-12 12:17] LABS: PHOSPHORUS 3.8 mg/dL (2.5-4.9); T4 FREE 0.85 ng/dL (0.76-1.46)
[2023-02-12] MEDS: CLONIDINE 0.1MG TABLET PO PRN (15:11)
[2023-02-12 16:00] VITALS: BP 145/100
[2023-02-12 20:00] VITALS: BP 142/104
[2023-02-12] MEDS ORDERED: QUETIAPINE FUMARATE 50MG TABLET PO SCH (21:00)
[2023-02-13] VITALS: BP 149/105
[2023-02-13 04:00] VITALS: BP 137/100
[2023-02-13 08:00] VITALS: BP 133/101
[2023-02-13] MEDS: ENOXAPARIN 100MG/ML SYR SUBCUT SCH (08:57)
[2023-02-13] MEDS: FAMOTIDINE 20MG/2ML VIAL IV SCH (08:58)
[2023-02-13] MEDS: CLOPIDOGREL 75MG TABLET PO SCH (08:58)
[2023-02-13] MEDS: CARVEDILOL 3.125 MG TABLET PO SCH (08:58)
[2023-02-13] MEDS ORDERED: LOSARTAN POTASSIUM 25 MG TABLET PO SCH (09:00)
[2023-02-13] MEDS ORDERED: APIX5TAB PO (12:37)
[2023-02-13] MEDS ORDERED: AMLO2.5T45 PO (12:37)
[2023-02-13] MEDS ORDERED: LOSA25TA26 PO (12:37)
[2023-02-13] MEDS ORDERED: ATOR20TA65 PO (12:37)
[2023-02-13] MEDS ORDERED: ASPI-1497 PO (12:37)
[2023-02-13] MEDS ORDERED: SPIRONOLACTONE 25MG TABLET PO SCH (13:00)
[2023-02-13 14:49] VITALS: BP 116/75
== END 2023-02-13 15:21 | disposition home health service (06) | DRG 469 ==
LOC: ER 01:07 → 7EST 08:57 → SUPCPDRO 10:29 → ER 22:35
PROVIDERS: ADMIT Internal Medicine; ATTEND Internal Medicine
DX: N17.9 Acute kidney failure, unspecified (principal); G93.41 Metabolic encephalopathy; E87.0 Hyperosmolality and hypernatremia; I42.9 Cardiomyopathy, unspecified; K52.9 Noninfective gastroenteritis and colitis, unspecified; I11.0 Hypertensive heart disease with heart failure; F20.9 Schizophrenia, unspecified; E87.5 Hyperkalemia; I48.0 Paroxysmal atrial fibrillation; I50.22 Chronic systolic (congestive) heart failure; Z20.822 Contact with and (suspected) exposure to COVID-19; F31.9 Bipolar disorder, unspecified; F10.10 Alcohol abuse, uncomplicated; R73.9 Hyperglycemia, unspecified; J44.9 Chronic obstructive pulmonary disease, unspecified; Z86.73 Personal history of transient ischemic attack (TIA), and cerebral infarction without residual deficits; Z79.82 Long term (current) use of aspirin; Z79.02 Long term (current) use of antithrombotics/antiplatelets; Z79.899 Other long term (current) drug therapy; Z88.0 Allergy status to penicillin; Z88.8 Allergy status to other drugs, medicaments and biological substances; Z82.49 Family history of ischemic heart disease and other diseases of the circulatory system
CPT/HCPCS: 36415; 36600; 70496; 70498; 70551; 74176; 76770; 80048; 80053; 80061; 80305; 81003; 82375; 82607; 82805; 82962; 83735; 83935; 84100; 84300; 84439; 84443; 85025; 87426; 92610; 93005; 93306; 94640; 97116; 97162; 97166; 97530; 99285; C1893; C9113; J1650; J3490; J7030; J7042; Q9967

== ENCOUNTER 2023-02-17 06:49 | Emergency (ER) | payer MEDICARE, OTHER ==
[~2023-02-17] VITALS: Ht 162.6 cm; Wt 66.0 kg
[~2023-02-17 06:49] MED LIST changes: +AMLO2.5T45 PO; +APIX5TAB PO; -ASPI-1079 PO; +ASPI-1497 PO; -ATOR20TA65 MT; +ATOR20TA65 PO; -CARV12.545 MT; +ESCI-7 MT; -FURO40TA5 MT; +LOSA25TA26 PO; -LOSA50TA41 MT; -QUET300T2 PO; -SPIR25TA MT
[2023-02-17 07:02] VITALS: BP 137/102
== END 2023-02-17 09:19 | disposition left against medical advice (07) ==
LOC: ER 06:49
DX: R45.6 Violent behavior (principal); F15.10 Other stimulant abuse, uncomplicated; I11.0 Hypertensive heart disease with heart failure; I50.9 Heart failure, unspecified; J44.9 Chronic obstructive pulmonary disease, unspecified; F20.9 Schizophrenia, unspecified; Z79.899 Other long term (current) drug therapy
CPT/HCPCS: 99283

== ENCOUNTER 2023-04-16 02:16 | Inpatient (IN) | payer MEDICARE, MEDICAID ==
[~2023-04-16] VITALS: Ht 167.6 cm; Wt 86.2 kg
[~2023-04-16 02:16] MED LIST changes: +ALBU18HF2 IH; -AMLO2.5T45 PO; +AMLO5TAB88 PO; +BUDE90AE INH; +HYDR-4135 PO; +ISOS30TA91 PO; -LOSA25TA26 PO; +LOSA50TA41 PO; +QUET25TA PO
[2023-04-16] MEDS ORDERED: IPRATROPIUM BROMIDE (0.02%) 0.5MG/2.5ML NEB HHN STA (02:49)
[2023-04-16] MEDS ORDERED: ALBUTEROL (0.083%) 2.5MG/3ML NEB HHN STA (02:49)
[2023-04-16] MEDS ORDERED: METHYLPREDNISOLONE SOD SUCC 125 MG/2 ML VIAL IV STA (02:49)
[2023-04-16] MEDS ORDERED: FUROSEMIDE 40MG/4ML VIAL IV ONE (03:00)
[2023-04-16] MEDS ORDERED: MAGNESIUM 2 G PREMIX 50 ML IV ONE (03:30)
[2023-04-16 04:49] LABS: BASOPHILS % 0.4 % (0.0-2.0); EOSINOPHILS % 1.6 % (0.0-5.0); HEMATOCRIT. 30.3 % (36.0-48.0); HEMOGLOBIN. 9.7 g/dL (12.0-16.0); LYMPHOCYTES % 26.3 % (20.0-50.0); MEAN CORPUSCULAR HEMOGLOBIN 30.3 pg (28.0-32.0); MEAN CORPUSCULAR VOLUME 94.9 fL (81.0-99.0); MONOCYTES % 11.8 % (2.0-8.0); NEUTROPHILS % 59.9 % (40.0-76.0); RED BLOOD CELL COUNT 3.19 mill/uL (4.2-5.4)
[2023-04-16] MEDS: METOPROLOL TARTRATE 5MG/5ML VIAL IV SCH ×2 (05:10→09:49)
[2023-04-16 05:25] LABS: BG BASE EXCESS -4.8 mmol/L (-2.0-2.0); BG CARBOXYHEMOGLOBIN 0.3 % (0.5-1.5); BG DEOXYHEMOGLOBIN 1.1 % (0.0-5.0); BG FRACTION INSPIRED OXYGEN 50; BG HCO3 ACT 19.6 mmol/L (22.0-26.0); BG METHEMOGLOBIN 0.3 % (0.0-1.5); BG OXYGEN SATURATION 98.9 % (92.0-98.5); BG OXYHEMOGLOBIN 98.3 % (94.0-97.0); BG PCO2 33.8 mmHg (35.0-45.0); BG PH 7.381 (7.350-7.450); BG PO2 171.6 mmHg (75.0-100.0); BG SAMPLE SITE LEFT RADIAL; BG TOTAL HEMOGLOBIN 11.4 g/dL (12.0-18.0); BG VENT MODE MASK - BIPAP
[2023-04-16 05:28] LABS: CHLORIDE 92 mEq/L (98-107)
[2023-04-16] MEDS ORDERED: POTASSIUM CHLORIDE INJ 40 MEQ in DEXT 5% WATER 250 ML IV ONE (05:30)
[2023-04-16] MEDS ORDERED: IPRATROPIUM/ALBUTEROL 0.5-3(2.5)MG/3ML NEB HHN SCH ×2 (09:30→12:00)
[2023-04-16] MEDS ORDERED: POTASSIUM CHLORIDE 20MEQ TABLET SR PO NR (09:30)
[2023-04-16] MEDS ORDERED: METHYLPREDNISOLONE SOD SUCC 125 MG/2 ML VIAL IV ONE (09:30)
[2023-04-16 10:03] LABS: PHOSPHORUS 3.8 mg/dL (2.5-4.9)
[2023-04-16] MEDS: BUDESONIDE 0.5MG/2ML NEB HHN SCH (10:48)
[2023-04-16] MEDS: IPRATROPIUM BROMIDE (0.02%) 0.5MG/2.5ML NEB HHN SCH ×2 (11:30→16:50)
[2023-04-16] MEDS ORDERED: METOPROLOL TARTRATE 50MG TABLET PO NR (11:30)
[2023-04-16] MEDS: AZITHROMYCIN 250 MG in DEXT 5% WATER 250 ML IV SCH (12:04)
[2023-04-16 12:56] LABS: *AMPHETAMINES SCREEN URINE PRESUMTIVE POSITIVE (NEGATIVE); *BARBITURATES SCREEN URINE NEGATIVE (NEGATIVE); *BENZODIAZEPINES SCREEN URINE NEGATIVE (NEGATIVE); *COCAINE SCREEN URINE PRESUMTIVE POSITIVE (NEGATIVE); CANNABINOID URINE SCREEN NEGATIVE (NEGATIVE); METHADONE URINE SCREEN NEGATIVE (NEGATIVE); OPIATES URINE SCREEN NEGATIVE (NEGATIVE); PHENCYCLIDINE URINE SCREEN NEGATIVE (NEGATIVE)
[2023-04-16] MEDS: METHYLPREDNISOLONE SOD SUCC 125 MG/2 ML VIAL IV SCH ×2 (14:50→22:31)
[2023-04-16 18:00] VITALS: BP 153/91
[2023-04-16] MEDS ORDERED: ENOXAPARIN 80MG/0.8ML SYR SUBCUT NR (18:15)
[2023-04-16] MEDS: FUROSEMIDE 40MG/4ML VIAL IVP SCH (18:53)
[2023-04-16 19:18] VITALS: BP 146/103
[2023-04-16 19:24] LABS: BASOPHILS % 0.1 % (0.0-2.0); HEMATOCRIT. 34.7 % (36.0-48.0); LYMPHOCYTES % 8.9 % (20.0-50.0); MEAN CORPUSCULAR HEMOGLOBIN 30.6 pg (28.0-32.0); MEAN CORPUSCULAR VOLUME 96.6 fL (81.0-99.0); MEAN PLATELET VOLUME 8.7 fl (7.4-10.4); MONOCYTES % 5.1 % (2.0-8.0); NEUTROPHILS % 85.9 % (40.0-76.0); PLATELET 219 x1000/uL (130-400); RED CELL DISTRIBUTION WIDTH 16.2 % (11.6-14.6)
[2023-04-16 19:32] LABS: INR 1.1
[2023-04-16 19:45] VITALS: BP 153/91
[2023-04-16 20:00] VITALS: BP 141/97
[2023-04-16 22:00] VITALS: BP 140/104
[2023-04-16] MEDS: METOPROLOL TARTRATE 50MG TABLET PO SCH (22:35)
[2023-04-17] VITALS (15 sets, daily range): BP systolic 103–162; BP diastolic 70–125
[2023-04-17] MEDS: METHYLPREDNISOLONE SOD SUCC 125 MG/2 ML VIAL IV SCH ×2 (06:33→14:03)
[2023-04-17] MEDS: HYDROCODONE/ACETAMINOPHEN 5/325MG TABLET PO PRN ×2 (06:34→19:53)
[2023-04-17] MEDS: BUDESONIDE 0.5MG/2ML NEB HHN SCH ×2 (08:44→21:09)
[2023-04-17] MEDS: IPRATROPIUM BROMIDE (0.02%) 0.5MG/2.5ML NEB HHN SCH ×4 (08:44→21:09)
[2023-04-17 08:46] LABS: BG BASE EXCESS -4.3 mmol/L (-2.0-2.0); BG CARBOXYHEMOGLOBIN 0.3 % (0.5-1.5); BG DEOXYHEMOGLOBIN 10.8 % (0.0-5.0); BG FRACTION INSPIRED OXYGEN 32; BG HCO3 ACT 20.1 mmol/L (22.0-26.0); BG METHEMOGLOBIN 0.3 % (0.0-1.5); BG OXYGEN SATURATION 89.1 % (92.0-98.5); BG OXYHEMOGLOBIN 88.6 % (94.0-97.0); BG PCO2 34.8 mmHg (35.0-45.0); BG PO2 56.3 mmHg (75.0-100.0); BG SAMPLE SITE RIGHT BRACHIAL; BG TOTAL HEMOGLOBIN 11.1 g/dL (12.0-18.0); BG VENT MODE NASAL CANNULA
[2023-04-17] MEDS: FUROSEMIDE 40MG/4ML VIAL IVP SCH ×2 (09:36→17:52)
[2023-04-17] MEDS: ENOXAPARIN 80MG/0.8ML SYR SUBCUT SCH ×2 (09:40→21:52)
[2023-04-17] MEDS: METOPROLOL TARTRATE 50MG TABLET PO SCH (09:42)
[2023-04-17] MEDS: DILTIAZEM HCL 30MG TABLET PO SCH ×2 (14:04→21:53)
[2023-04-17] MEDS ORDERED: NALOXONE HCL 0.4MG/ML VIAL IV PRN (16:30)
[2023-04-17] MEDS: AZITHROMYCIN 250 MG in DEXT 5% WATER 250 ML IV SCH (17:53)
[2023-04-17] MEDS: METHYLPREDNISOLONE SOD SUCC 40 MG/ML (ACT-O-VIAL) IV SCH (21:52)
[2023-04-18] VITALS (13 sets, daily range): BP systolic 136–155; BP diastolic 84–109
[2023-04-18] MEDS: IPRATROPIUM BROMIDE (0.02%) 0.5MG/2.5ML NEB HHN SCH ×6 (01:26→20:10)
[2023-04-18] MEDS: METHYLPREDNISOLONE SOD SUCC 40 MG/ML (ACT-O-VIAL) IV SCH (05:14)
[2023-04-18] MEDS: DILTIAZEM HCL 30MG TABLET PO SCH ×3 (05:14→22:12)
[2023-04-18 07:04] LABS: HEMATOCRIT. 30.7 % (36.0-48.0); HEMOGLOBIN. 10.1 g/dL (12.0-16.0); LYMPHOCYTES % 9.6 % (20.0-50.0); MEAN CORPUSCULAR HEMOGLOBIN 30.6 pg (28.0-32.0); MEAN CORPUSCULAR VOLUME 93.4 fL (81.0-99.0); MEAN PLATELET VOLUME 8.9 fl (7.4-10.4); MONOCYTES % 5.6 % (2.0-8.0); NEUTROPHILS % 84.8 % (40.0-76.0); PLATELET 236 x1000/uL (130-400); RED BLOOD CELL COUNT 3.29 mill/uL (4.2-5.4); RED CELL DISTRIBUTION WIDTH 15.6 % (11.6-14.6)
[2023-04-18] MEDS: FUROSEMIDE 40MG/4ML VIAL IVP SCH (08:28)
[2023-04-18] MEDS: ENOXAPARIN 80MG/0.8ML SYR SUBCUT SCH ×2 (08:30→21:21)
[2023-04-18] MEDS: AZITHROMYCIN 250 MG TABLET PO SCH (08:31)
[2023-04-18] MEDS: BUDESONIDE 0.5MG/2ML NEB HHN SCH ×2 (09:01→20:10)
[2023-04-18 10:13] LABS: BG BASE EXCESS -3.5 mmol/L (-2.0-2.0); BG CARBOXYHEMOGLOBIN 0.1 % (0.5-1.5); BG DEOXYHEMOGLOBIN 11.3 % (0.0-5.0); BG FRACTION INSPIRED OXYGEN 21; BG HCO3 ACT 20.3 mmol/L (22.0-26.0); BG METHEMOGLOBIN 0.2 % (0.0-1.5); BG OXYGEN SATURATION 88.7 % (92.0-98.5); BG OXYHEMOGLOBIN 88.4 % (94.0-97.0); BG PCO2 32.2 mmHg (35.0-45.0); BG PH 7.417 (7.350-7.450); BG PO2 55.7 mmHg (75.0-100.0); BG SAMPLE SITE RIGHT BRACHIAL; BG TOTAL HEMOGLOBIN 11.3 g/dL (12.0-18.0); BG VENT MODE ROOM AIR
[2023-04-18] MEDS: METHYLPREDNISOLONE SOD SUCC 125 MG/2 ML VIAL IV SCH ×2 (14:37→22:13)
[2023-04-18] MEDS: FUROSEMIDE 20MG/2ML VIAL IVP SCH (17:16)
[2023-04-18] MEDS: HYDROCODONE/ACETAMINOPHEN 5/325MG TABLET PO PRN (22:31)
[2023-04-19] VITALS (9 sets, daily range): BP systolic 138–164; BP diastolic 54–109
[2023-04-19] MEDS: IPRATROPIUM BROMIDE (0.02%) 0.5MG/2.5ML NEB HHN SCH ×4 (00:59→13:04)
[2023-04-19] MEDS: METHYLPREDNISOLONE SOD SUCC 125 MG/2 ML VIAL IV SCH ×2 (06:02→14:00)
[2023-04-19] MEDS: DILTIAZEM HCL 30MG TABLET PO SCH (06:03)
[2023-04-19 06:18] LABS: HEMATOCRIT. 32.1 % (36.0-48.0); HEMOGLOBIN. 10.6 g/dL (12.0-16.0); LYMPHOCYTES % 7.6 % (20.0-50.0); MEAN CORPUSCULAR HEMOGLOBIN 30.4 pg (28.0-32.0); MEAN CORPUSCULAR VOLUME 92.1 fL (81.0-99.0); MEAN PLATELET VOLUME 8.9 fl (7.4-10.4); MONOCYTES % 6.1 % (2.0-8.0); NEUTROPHILS % 86.3 % (40.0-76.0); PLATELET 262 x1000/uL (130-400); RED BLOOD CELL COUNT 3.49 mill/uL (4.2-5.4); RED CELL DISTRIBUTION WIDTH 16.2 % (11.6-14.6)
[2023-04-19 06:32] LABS: PHOSPHORUS 3.5 mg/dL (2.5-4.9)
[2023-04-19] MEDS ORDERED: AMLODIPINE 5MG TABLET PO SCH (09:15)
[2023-04-19] MEDS: ENOXAPARIN 80MG/0.8ML SYR SUBCUT SCH (09:26)
[2023-04-19] MEDS: FUROSEMIDE 20MG/2ML VIAL IVP SCH (09:29)
[2023-04-19] MEDS: AZITHROMYCIN 250 MG TABLET PO SCH (09:29)
[2023-04-19] MEDS ORDERED: ISOSORBIDE MONONITRATE 30MG TABLET SR 24HR PO SCH (10:00)
[2023-04-19] MEDS: BUDESONIDE 0.5MG/2ML NEB HHN SCH (10:26)
[2023-04-19] MEDS ORDERED: DILT300C35 MT (10:54)
[2023-04-19] MEDS ORDERED: FURO-151 MT (10:55)
[2023-04-19] MEDS ORDERED: BUDE90AE INH (10:55)
[2023-04-19] MEDS ORDERED: P20 MT (10:55)
[2023-04-19] MEDS ORDERED: LOSA50TA41 PO (10:55)
[2023-04-19] MEDS ORDERED: ALBU18HF2 IH (10:55)
[2023-04-19] MEDS: HYDROCODONE/ACETAMINOPHEN 5/325MG TABLET PO PRN (12:37)
[2023-04-19] MEDS ORDERED: DILTIAZEM HCL 60MG TABLET PO SCH (14:00)
[2023-04-19] MEDS ORDERED: HYDRALAZINE HCL 50MG TABLET PO SCH (14:00)
[2023-04-19] MEDS ORDERED: DIPHENHYDRAMINE 50MG/ML VIAL IM PRN (16:15)
[2023-04-19] MEDS ORDERED: DIPHENHYDRAMINE 25MG CAPSULE PO PRN (16:30)
[2023-04-19] MEDS ORDERED: LOSARTAN POTASSIUM 50 MG TABLET PO SCH (21:00)
== END 2023-04-19 17:56 | disposition home or self-care (01) | DRG 194 ==
LOC: ER 02:22 → 5EST 04:10 → EDBEDREQSVC 04:31 → 5EST 04-19 06:36
PROVIDERS: ADMIT Internal Medicine; ATTEND Internal Medicine
PROC: 5A09457 Assistance with Respiratory Ventilation, 24-96 Consecutive Hours, Continuous Positive Airway Pressure (ICD-10-PCS; principal; 2023-04-16)
PROC: 5A09357 Assistance with Respiratory Ventilation, Less than 24 Consecutive Hours, Continuous Positive Airway Pressure (ICD-10-PCS; 2023-04-17)
PROC: 5A09357 Assistance with Respiratory Ventilation, Less than 24 Consecutive Hours, Continuous Positive Airway Pressure (ICD-10-PCS; 2023-04-18)
DX: I13.0 Hypertensive heart and chronic kidney disease with heart failure and stage 1 through stage 4 chronic kidney disease, or unspecified chronic kidney disease (principal); J96.01 Acute respiratory failure with hypoxia; E44.0 Moderate protein-calorie malnutrition; I42.9 Cardiomyopathy, unspecified; J44.1 Chronic obstructive pulmonary disease with (acute) exacerbation; I48.19 Other persistent atrial fibrillation; I50.23 Acute on chronic systolic (congestive) heart failure; N18.9 Chronic kidney disease, unspecified; D64.9 Anemia, unspecified; E87.6 Hypokalemia; F17.210 Nicotine dependence, cigarettes, uncomplicated; R32 Unspecified urinary incontinence; F20.9 Schizophrenia, unspecified; Z86.73 Personal history of transient ischemic attack (TIA), and cerebral infarction without residual deficits; Z88.0 Allergy status to penicillin; Z88.5 Allergy status to narcotic agent; Z79.899 Other long term (current) drug therapy; Z82.49 Family history of ischemic heart disease and other diseases of the circulatory system; Z71.51 Drug abuse counseling and surveillance of drug abuser; Z79.01 Long term (current) use of anticoagulants; Z79.82 Long term (current) use of aspirin; Z68.30 Body mass index [BMI] 30.0-30.9, adult
CPT/HCPCS: 36415; 36600; 71045; 80048; 80053; 80305; 82375; 82805; 82962; 83605; 83735; 83880; 84100; 84145; 84443; 84484; 85025; 93005; 94640; 94644; 94660; 99291; A6261; J0456; J1650; J1940; J2920; J2930; J3475; J3480; J3490; J7060; J7626; Q0163